=== PATIENT | female | born 1980 | race African-American/Black ===

== ENCOUNTER 2017-06-17 15:16 | Emergency (ER) | payer SELFPAY ==
--- NOTE | 2017-06-17 15:39 | ED Physician Documentation ---
General Adult - HISTORIAN Historian: patient - HPI Stated Complaint: Hematoma Chief Complaint: General Adult Further Comments: yes (37 year old female patient presents with complaints of left foot pain. Patient states she has had a hematoma on her left foot for over a year, has been seen multiple times in [place]. C/O worsening pain. Does not have PCP.) - ROS CONST: no problems EYES/ENT: none CVS/RESP: none GI/: none MS/SKIN/LYMPH: none NEURO/PSYCH: denies: headache - PAST HX Past History: none Other History: none Allergies/Adverse Reactions: Allergies Allergy/AdvReac Type Severity Reaction Status Date / Time No Known Allergies Allergy Verified 06/17/17 15:32 Home Medications: Ambulatory Orders Medication Instructions Recorded NK [NK] 05/13/17 - SOCIAL HX Smoking History: cigarettes - FAMILY HX Family History: No - VITAL SIGNS Vital Signs: Vital Signs Temp Pulse Resp BP Pulse Ox 98.7 F 78 16 136/86 99 06/17/17 15:25 06/17/17 15:25 06/17/17 15:25 06/17/17 15:25 06/17/17 15:25 - REVIEWED ASSESSMENTS Nursing Assessment Reviewed: Yes Vitals Reviewed: Yes Progress - Progress Progress: Encouraged patient to follow up with orthopedics or surgeon for removal of nodule/cyst. patient requesting nik wrap General Adult Physical Exam - PHYSICAL EXAM GENERAL APPEARANCE: mild distress EENT: [place] RESPIRATORY: no resp distress CVS: reg rate & rhythm EXTREMITIES: non-tender, normal range of motion, no evidence of injury, no edema , other (left foot with 2 cm area of soft tissue nodule - mobile; non tender to palpation. ) NEURO: oriented X3, motor nml, sensation nml, mood/affect nml Discharge Clincal Impression: Foot pain, left, Ganglion cyst of left foot Additional Instructions: Follow up with surgery or orthopedics for consult for evaluation of foot. Tylenol or ibuprofen as needed for pain Condition: Stable Disposition: 01 HOME, SELF-CARE Decision to Admit: NO Decision Time: 15:38
[2017-06-17 15:47] VITALS: BP 129/84
== END 2017-06-17 15:45 | disposition home or self-care (01) ==
LOC: ED 15:16
DX: M79.672 Pain in left foot (principal); M67.472 Ganglion, left ankle and foot
CPT/HCPCS: 99282

== ENCOUNTER 2018-07-26 08:05 | Emergency (ER) | payer OTHER ==
[2018-08-08 18:18] LABS: APPEARANCE,URINE CLEAR (CLEAR); COLOR,URINE YELLOW (YELLOW); OCCULT BLOOD,URINE NEGATIVE (NEGATIVE); PH URINE 5.5 (5.0 - 8.0); UROBILINOGEN URINE 0.2 Eu (0.2-1.0)
--- NOTE | 2018-09-10 13:59 | Diagnostic Imaging Report ---
FANTASMA MARR (CREDIT ASSOCIATE) - ER [facility] [address] [facility].[address] [address] Report Submission Date: Jul 26, 2018 9:41:38 AM CDT Patient Study Name: ARCADIO HARTMAN Date: Jul 26, 2018 8:40:44 AM CDT Modality Type: US\SR Gender: F Description: US HEART TONE : 80 Institution: [facility] Physician: FANTASMA MARR (CREDIT ASSOCIATE) - ER Exam: Limited obstetrical ultrasound. History: Check heart rate. Real-time grayscale imaging of the gravid uterus transabdominally is performed. A single fetus in cephalic position is identified. The placenta is grade 0 and anterior position. The amount of fluid around the fetus is described as normal. The stomach, diaphragm and kidneys are normal echotexture. The heart rate is 156 beats per minute. Impression: Single fetus in cephalic position with a heart rate of 156 beats per minute. No other measurements are obtained. Electronically signed on Jul 26, 2018 9:41:38 AM CDT by: Zackery YOUNG
== END 2018-07-26 09:11 | disposition home or self-care (01) ==
LOC: ED 08:05
DX: R10.32 Left lower quadrant pain (principal)
CPT/HCPCS: 76801; 81002; 99282; 99283

== ENCOUNTER 2018-07-29 07:20 | Emergency (ER) | payer OTHER ==
[2018-08-09 08:45] LABS: BASOPHILS % 0.3 % (0.0-1.5); NEUTROPHILS # 7.3 # k/uL (1.4-7.7)
== END 2018-07-29 08:08 ==
LOC: ED 07:20
DX: L98.8 Other specified disorders of the skin and subcutaneous tissue (principal); R10.9 Unspecified abdominal pain
CPT/HCPCS: 36415; 85025

== ENCOUNTER 2018-12-15 15:29 | Emergency (ER) | payer OTHER ==
[2018-12-15 15:47] VITALS: BP 162/84
--- NOTE | 2018-12-15 16:02 | ED Physician Documentation ---
General Adult - HISTORIAN Historian: patient - HPI Stated Complaint: Wound drainage Chief Complaint: General Adult Onset: hours Timing: still present Severity: moderate Further Comments: yes (Pt is a 38 yo female with serosanguinous drainage from a wound after on Nov 30. After the surgery, pt initially had sutures, then later steri-strips. These fell off and pt now has serosanguinous drainage from the site. Pt is obese, weighing 365 lbs, and the incision site is on the lower side of an abdominal pannus. Pt has had large amounts of serosanguinous fluid drainage. C-sec was done at [facility].) - ROS CONST: no problems EYES/ENT: none CVS/RESP: none GI/: other (abd drainage after recent ) - PAST HX Past History: other (Obesity, C-sec) Allergies/Adverse Reactions: Allergies Allergy/AdvReac Type Severity Reaction Status Date / Time No Known Allergies Allergy Verified 12/15/18 15:47 Home Medications: Ambulatory Orders Medication Instructions Recorded NK 05/13/17 - SOCIAL HX Smoking History: cigarettes - FAMILY HX Family History: No - VITAL SIGNS Vital Signs: Vital Signs Temp Pulse Resp BP Pulse Ox 97.2 F L 85 15 162/84 97 12/15/18 15:30 12/15/18 15:30 12/15/18 15:30 12/15/18 15:30 12/15/18 15:30 - REVIEWED ASSESSMENTS Nursing Assessment Reviewed: Yes Vitals Reviewed: Yes Progress - Progress Progress: d/w women & children triage pt will f/u there promptly General Adult Physical Exam - PHYSICAL EXAM GENERAL APPEARANCE: mild distress EENT: pharynx normal NECK: normal inspection, supple RESPIRATORY: no resp distress, chest non-tender, breath sounds normal (distant breath sounds) CVS: reg rate & rhythm, heart sounds normal (distant heart sounds) ABDOMEN: soft, other (healing lower abd scar, lower edge of pannus, with copious sersanguinous drainage) BACK: normal inspection, no CVA tenderness SKIN: other (healing lower abd scar, lower edge of pannus, with copious sersanguinous drainage) EXTREMITIES: non-tender, normal range of motion, no evidence of injury NEURO: oriented X3, motor nml, sensation nml Discharge Clincal Impression: wound complication s/p C-sec Referrals: Primary Doctor,No [Primary Care Provider] - Condition: Stable Disposition: 01 HOME, SELF-CARE Decision to Admit: NO Decision Time: 17:00
== END 2018-12-15 17:05 | disposition home or self-care (01) ==
LOC: ED 15:29
DX: Z48.03 Encounter for change or removal of drains (principal)
CPT/HCPCS: 96372; 99281; 99284

== ENCOUNTER 2019-02-11 10:07 | Outpatient (CLI) | payer OTHER ==
--- NOTE | 2019-02-11 11:36 | Diagnostic Imaging Report ---
PATIENT MR#: [id number] PATIENT PATIENT NAME: ARCADIO HARTMAN DATE OF : 1980 REFERRING PHYSICIAN: Kostas Danielle EXAM DATE: 02/11/2019 ACCESSION NUMBER: [id number] EXAM DESCRIPTION: BILAT KNEE 1 OR 2 VIEWS CLINICAL HISTORY: PAIN IN LEFT KNEE. COMPARISON: No study for comparison is available at the time of interpretation. TECHNIQUE: DX bilateral knees, standing AP view There is moderate-severe narrowing of the bilateral medial tibiofemoral articular spaces, with relati ve widening of the lateral tibiofemoral articular spaces. There is mild-moderate genu varus deformity bilaterally. IMPRESSION: Bilateral genu varus produces asymmetric narrowing of the medial tibiofemoral articular s paces. Read by: Dr. Jose Juan Meza Transcribed by: Jose Juan Meza Transcribed Date: 02/11/2019 11:35:38 AM Electronically signed by: Dr. Jose Juan Meza Date signed: 02/11/2019 11:36:15 AM
--- NOTE | 2019-02-11 11:49 | Diagnostic Imaging Report ---
PATIENT MR#: [id number] PATIENT PATIENT NAME: ARCADIO HARTMAN DATE OF : 1980 REFERRING PHYSICIAN: Kostas Danielle EXAM DATE: 02/11/2019 ACCESSION NUMBER: [id number] EXAM DESCRIPTION: KNEE 1 OR 2 VIEWS CLINICAL HISTORY: PAIN IN LEFT KNEE. COMPARISON: No study for comparison is available at the time of interpretation. TECHNIQUE: DX left knee, 3 views Osseous structures: No acute fracture. However, there is cortical irregularity of the medial patellof emoral articular surfaces. Joint spaces: There is a 6 mm osteochondral defect of the patellar articular surface. There is modera te-severe narrowing of the medial tibiofemoral articular space, with relatively widening of the lateral compartment, in p art due to genu varus deformity. Soft tissues: There is suprapatellar fluid. IMPRESSION: 1. 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 2. Genu varus produces asymmetric narrowing of the medial tibiofemoral articular space. Read by: Dr. Jose Juan Meza Transcribed by: Jose Juan Meza Transcribed Date: 02/11/2019 11:48:22 AM Electronically signed by: Dr. Jose Juan Meza Date signed: 02/11/2019 11:48:22 AM
== END 2019-02-11 10:12 ==
LOC: RAD 10:07
PROVIDERS: ATTEND Family Medicine
DX: G89.29 Other chronic pain (principal); M25.562 Pain in left knee
CPT/HCPCS: 73560